=== PATIENT | male | born 1995 | race Caucasian/White ===

== ENCOUNTER 2017-02-23 11:48 | Emergency (ER) | payer OTHER ==
--- NOTE | 2017-02-23 13:47 | ED ---
URI HPI - General Chief Complaint: Upper Respiratory Infection Stated Complaint: URI Time Seen by Provider: 02/23/17 12:04 Source: patient, RN notes reviewed, old records reviewed Mode of arrival: ambulatory Limitations: no limitations - History of Present Illness Initial Comments: This is a 21 year old male with CC of productive cough for 3 or more weeks. 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 Patient reports that he has no recorded fever , denies any chest pain. Patient states that he does not smoke. Denies abdominal pain, nausea, vomiting. Patient states a mild sore throat due to coughing. - Related Data Previous Rx's Medication Instructions Recorded Albuterol Inhaler [Ventolin Hfa 1 - 2 puff INHALATION Q6HR PRN #1 02/23/17 Inhaler] inhaler Azithromycin [Zithromax] 250 mg PO DIRECTED #6 tab 02/23/17 methylPREDNISolone Dose Pack 4 mg PO DIRECTED #21 package 02/23/17 [Medrol Dose Pack] Allergies Allergy/AdvReac Type Severity Reaction Status Date / Time No Known Allergies Allergy Verified 02/23/17 12:25 Review of Systems ROS Statement: Those systems with pertinent positive or pertinent negative responses have been documented in the HPI. ROS Other: All systems not noted in ROS Statement are negative. Past Medical History Past Medical History: No Reported History Additional Past Medical History / Comment(s): concussion History of Any Multi-Drug Resistant Organisms: None Reported Past Surgical History: Tonsillectomy Past Psychological History: No Psychological Hx Reported Smoking Status: Never smoker Past Alcohol Use History: None Reported Past Drug Use History: None Reported General Exam - General Exam Comments Initial Comments: Well appearing 21 year old male, no distress. Limitations: no limitations General appearance: alert, in no apparent distress Head exam: Present: atraumatic, normocephalic, normal inspection Eye exam: Present: normal appearance, PERRL, EOMI. Absent: scleral icterus, conjunctival injection, periorbital swelling ENT exam: Present: normal exam, mucous membranes moist Neck exam: Present: normal inspection. Absent: tenderness, meningismus, lymphadenopathy Respiratory exam: Present: normal lung sounds bilaterally. Absent: respiratory distress, wheezes, rales, rhonchi, stridor Cardiovascular Exam: Present: regular rate, normal rhythm, normal heart sounds. Absent: systolic murmur, diastolic murmur, rubs, gallop, clicks Extremities exam: Present: normal inspection, full ROM, normal capillary refill. 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 Patient has no wheezing on exam, but does have a significant cough. PAtient xray is negative for significant pneumonia. Patient will be covered for atypical bacteria with azithrymycin, and steroids. Patient will also be dsicharged with Rx for inhaler. Patient understands to purchase OTC cough syrup, and return parameters were discussed. - Lab Data Lab Results 02/23/17 Range/Units 12:30 Group A Strep Rapid Negative (Negative) - Radiology Data Radiology results: report reviewed CXR negative for acute process. Disposition Clinical Impression: Upper respiratory infection, Acute bronchitis Disposition: HOME SELF-CARE Condition: Good Instructions: Acute Bronchitis (ED) Additional Instructions: Patient needs to take antibiotics as prescribed. Follow-up with her primary care physician. Return to the emergency department if any alarming signs or symptoms occur. Prescriptions: Albuterol Inhaler [Ventolin Hfa Inhaler] 1 - 2 puff INHALATION Q6HR PRN #1 inhaler PRN Reason: Shortness Of Breath Azithromycin [Zithromax] 250 mg PO DIRECTED #6 tab methylPREDNISolone Dose Pack [Medrol Dose Pack] 4 mg PO DIRECTED #21 package Referrals: Naveen Lazo Jr, DO [Primary Care Provider] - 1-2 days Time of Disposition: 13:46
--- NOTE | 2017-02-23 13:50 | XR ---
EXAMINATION TYPE: XR chest 2V DATE OF EXAM: 02/23/2017 COMPARISON: NONE INDICATION: Pain, cough TECHNIQUE: Frontal and lateral views of the chest are obtained. FINDINGS: The heart size is normal. The pulmonary vasculature is normal. The lungs are clear. IMPRESSION: 1. No acute pulmonary process.
[2017-02-23 13:54] VITALS: BP 115/57; PULSE 73; RESP 20; TEMP 97.9
--- NOTE | 2017-02-25 07:32 | CDI ---
Dear Taco PA: Please do addendum to ED report for HPI and physical exam. Thank you, Lor Sanchez Software Administrator If you have any question, Please contact manager laboratory at [phone] [facility]
== END 2017-02-23 14:00 | disposition home or self-care (01) ==
LOC: EC 11:48
DX: J06.9 Acute upper respiratory infection, unspecified (principal); J20.9 Acute bronchitis, unspecified
CPT/HCPCS: 71020; 87081; 87430; 99284